=== PATIENT | male | born 1955 | race Caucasian/White ===

== ENCOUNTER 2018-10-10 13:53 | Outpatient (CLI) | payer MEDICARE, OTHER ==
[2018-10-10 14:24] LABS: MEAN CORPUSCULAR HEMOGLOBIN 30.9 pg (28.0-34.0)
[2018-10-10 14:25] LABS: BASOPHILS % 6.5 % (0.0-1.5); EOSINOPHILS % 1.4 % (0.0-6.8); NEUTROPHILS # 4.1 # k/uL (1.4-7.7)
[2018-10-10 14:41] LABS: APPEARANCE,URINE CLEAR (CLEAR); COLOR,URINE YELLOW (YELLOW); OCCULT BLOOD,URINE NEGATIVE (NEGATIVE); PH URINE 6.5 (5.0 - 8.0); UROBILINOGEN URINE 0.2 Eu (0.2-1.0)
[2018-10-10 14:44] LABS: eGFR (Non-African) > 60
== END 2018-10-10 13:55 ==
LOC: LAB 13:53
PROVIDERS: ATTEND Internal Medicine
DX: Z00.00 Encounter for general adult medical examination without abnormal findings (principal); Z12.5 Encounter for screening for malignant neoplasm of prostate; E78.5 Hyperlipidemia, unspecified
CPT/HCPCS: 36415; 80053; 80061; 81002; 84153; 84439; 84443; 85025

== ENCOUNTER 2019-02-22 10:16 | Outpatient (CLI) | payer MEDICARE, OTHER ==
--- NOTE | 2019-02-22 13:30 | Diagnostic Imaging Report ---
JAY COHN [facility] [address] [facility].[address] [id number] Report Submission Date: Feb 22, 2019 1:20:46 PM CDT Patient Study Name: PAULA MEDINA Date: Feb 22, 2019 11:20:06 AM CDT Modality Type: DX Gender: M Description: FOOT 3 VIEWS OR MORE : 51 Institution: [facility] Physician: JAY COHN Exam: Right foot. History: Wound. AP, lateral and oblique view of the right foot are submitted. No previous studies are available for comparison. Well corticated deformity to the 5th proximal phalanx may indicate old injury. No signs of acute fracture or dislocation is seen. No bony erosions are seen. Spur off the plantar surface of the calcaneus is noted. Impression: Old injury to the 5th proximal phalanx. No acute fracture or bony erosion. Heel spur. Electronically signed on Feb 22, 2019 1:20:46 PM CDT by: Saravanan ONEAL
--- NOTE | 2019-02-28 08:07 | CONSULTATION REPORT ---
DATE OF CONSULTATION: 02/22/2019 SUBJECTIVE: J Carlos Rico is a 63-year-old nondiabetic male presenting to clinic today for a first time visit with me for a right great toe ulcer. The patient states that he believes it started back in the spring of this year, where it had a callus and eventually began to blister and opened up into a wound. The patient states that he does not recall any history of any infection noted, but does get some bleeding and drainage occasionally. He has been dressing it with Polysporin or another form of antibiotic ointment and a Band- Aid for most of that time. His primary care physician is Dr. Guillaume and he has an appointment coming up soon to see Dr. Guillaume. He was encouraged to discuss with Dr. Guillaume regarding the numbness that he is starting to feel in the right and left feet. The patient does not know why he is having it and denies any lower back pain issues at all. The patient does not have any other issues in the feet that are bothering him except for just this wound. The patient is ready to begin effective treatment with me going forward. The patient does not admit to any fever, chills, nausea, vomiting, shortness of breath or chest pain. OBJECTIVE: Vitals: Temperature 98.2, heart rate 97, respiration rate 18, blood pressure 149/91. O2 sat 97% on room air. Vascular: 2+ DP and PT pulses, bilaterally. Capillary refill time less than 3 seconds to the toes bilaterally. There is a large amount of hair growth noted on the right foot to the toes. There is no edema noted right foot. Dermatologic: The right great toe plantar medial IPJ has a notable open wound with some hyperkeratotic tissue noted. The wound base has some fagan and necrotic slough that was debrided today. The wound does not probe to bone, but is not too far from it. The wound does undermine in most directions approximately 0.3 cm. This is debrided to open up the undermining area today. There is moderate bleeding with debridement which was a good sign of good bleeding. The wound base otherwise is fibrogranular at this time. There is no purulence noted. There is some positive malodor as well as some erythema noted on the dorsal proximal end of the wound especially where there is some significant erythema. 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 Musculoskeletal: There is no pain on palpation noted and mild to no pain at debridement noted. The patient has 45 degrees range of motion at the first metatarsophalangeal joint dorsiflexion with the forefoot not loaded, and only approximately 10 degrees of range of motion of the first metatarsophalangeal joint with the forefoot loaded on the right. Neurologic: Light touch sensation is diminished at the toes right foot. Negative Tinel's sign at the tarsal tunnel or dorsal proximal foot and also a negative Tinel's sign at the common peroneal nerve right lower leg. ASSESSMENT AND PLAN: 1. Right hallux ulcer at the interphalangeal joint. 2. Hallux limitus of the right first metatarsophalangeal joint. 3. Peripheral neuropathy. The patient denies any known drug allergies. A prescription for Augmentin 875/125 mg #20 one by mouth b.i.d. x 10 days was given to the patient to take to [facility]. He admits to being only on one medication which is a cholesterol medication. Three views x-rays of the right foot were also ordered today to make sure that there are no signs of infection in the bone as the patient has had this for quite some time and has evidence of infection today. We will notify the patient on Tuesday of results. If any sign of infection in the bone, we will seek out more definitive imaging studies with an MRI. If there are no signs of infection, we will continue normal local wound care. The patient knows I will not be here next week and therefore we will see him in two weeks for followup. PROCEDURE #1: Sharp debridement of the right great toe IPJ ulcer down to and including the subcutaneous tissue layer less than 20 sq cm with a #15 blade was performed. Hemostasis was obtained with pressure. It should be noted there was moderate bleeding noted, which is a good sign. This was controlled with pressure and rinsed with a copious amount of normal saline. Dressings were then applied consisting of triple antibiotic ointment and a Band-Aid today. The patient did not have any large dressings applied as he was going to get x-rays at this time and he will do his normal gauze and Band-Aid dressing at home today or tomorrow and daily going forward as encouraged. The patient had a surgical shoe dispensed today with a large pad that offloads the IPJ area. The patient understands he needs to weight bear in this at all times except when in bed. The patient states he can do that and plans to do so. This will help keep pressure off the wound. We are addressing infection and pressure with this treatment and his bleeding seems to be great and therefore he should begin to progress with healing. If we have any stalling of healing we will need to look at some other options or changing offloading in a surgical shoe with perhaps a reverse Fagan's extension. It should be noted that a quarter-inch felt padding was placed in that surgical shoe with offloading at the great toe. The patient had no further questions and we will plan on seeing him again in two weeks. He is to do daily dressing changes to every other day dressing changes and to be taking the Augmentin for the next 10 days. We will follow up in two weeks and if has any questions he knows I will be out of town and needs to follow up with the primary care doctor. He was encouraged to speak with Dr. Guillaume about the numbness as I do not believe that is stemming from anything in the lower legs. Return to clinic in two weeks. Pieter Kaye D.P.M.(Dictated/not signed) /Accutype [id number] /mab MTDD
== END 2019-02-22 10:45 ==
LOC: POD 10:16
PROVIDERS: ATTEND Podiatrist Foot & Ankle Surgery
DX: L97.519 Non-pressure chronic ulcer of other part of right foot with unspecified severity (principal); M20.5X1 Other deformities of toe(s) (acquired), right foot; G62.9 Polyneuropathy, unspecified
CPT/HCPCS: 11042; 73630; 99212; G0463; A4554

== ENCOUNTER 2019-03-08 10:29 | Outpatient (CLI) | payer MEDICARE, OTHER ==
--- NOTE | 2019-03-12 14:20 | OP Clinic Progress Note ---
DATE OF VISIT: 03/08/2019 SUBJECTIVE: J Carlos Rico is a 63-year-old male presenting to clinic today for followup of a right great toe IPJ ulcer that started recently. The patient had x-rays done, which were negative for any signs of infection in the bone. The patient also upon review of the x-rays again today did not show any concern for decreased cartilage on the first metatarsophalangeal joint. The patient states that he took the Augmentin as prescribed and has finished it, but is concerned that it still looks and feels a little bit like it might be infected. The patient denies any medications except for a very small cholesterol pill that he takes. The patient denies any known drug allergies as well. The patient does not admit to any fevers, chills, nausea, vomiting, shortness of breath or chest pain. He is wearing a surgical shoe as directed at all times and states that he is worried that the padding has flattened some and wonders if he needs additional padding to help keep pressure off. OBJECTIVE: Vitals: Heart rate 88, respiration rate 16, blood pressure 145/90. O2 saturation is 96% on room air. Vascular: Non-palpable DP pulse today, and 2+ PT pulse, right foot. There is plenty of hair growth to the forefoot and toes, right foot. There is immediate capillary refill time to the great toe, right foot. Dermatologic: The right great toe has an open lesion under the IPJ that is measuring today at 1.0 x 0.4 x 0.4 cm deep. Last week, it measured 1.3 x 0.8 x 0.3 cm deep. This has definitely improved from last week. There is, however, consistent erythema and warmth noted around the edges of the wound. There is no purulence or malodor noted. There is very minimal bleeding with sharp debridement today. There is mild hyperkeratotic tissue around the edge of the wound that was also debrided today to intact skin around the wound. There are no other abnormalities or skin concerns noted on the right foot. Musculoskeletal: There is approximately 45 to 50 degrees of range of motion dorsiflexion of the right first metatarsophalangeal joint with the forefoot not loaded and this decreases to approximately 5 degrees of range of motion with the forefoot loaded. Upon further exam, we find that the first tarsometatarsal joint also has a hypermobility associated with it even with the forefoot not loaded. There are no other gross abnormalities noted, right foot. Neurologic: Light touch sensation seems to be absent at the toes, right foot. The patient does not feel any pain with debridement of the wound. ASSESSMENT AND PLAN: 1. Right hallux ulcer, IPJ. 2. Right hallux limitus. 3. Right first ray primus elevatus. 4. Peripheral neuropathy of unknown etiology, right foot. 5. Consistent cellulitis of the right great toe even after antibiotics. Upon visual exam of the x-rays from last visit, there is definite normal cartilage appearing in the first metatarsophalangeal joint. I do not believe that the issue is in that joint, however, I do believe the issue is stemming from a hypermobile first tarsometatarsal joint. As the first ray is hypermobile, I believe this elevates in the head of the first metatarsal and causes the great toe to jam against it disallowing any motion of the first metatarsophalangeal joint when the forefoot is loaded and therefore when he is walking. The patient and I discussed this today. The patient has continued cellulitis and warmth and therefore we are starting him on Bactrim DS one by mouth every 12 hours times 10 days. I wanted to add some MRSA coverage to make sure that we are taking care of any concern here. There is no good drainage to culture, however, so therefore we did not culture the wound. The patient understands that we are doing antibiotics for 10 more days and hopefully we will have some resolution of any cellulitis at that point. An adjustment was made to his surgical shoe off-loading the IPJ even better and allowing a first metatarsal head cutout to let the first metatarsal come down to improve range of motion as well. The patient understood this reasoning as well and he will continue to wear the surgical shoe at all times. PROCEDURE #1: Sharp debridement of the right great toe IPJ ulcer with a #15 blade was performed down to and including the subcutaneous tissue layer today. Bleeding was controlled with pressure, which was very mild. Hyperkeratotic tissue on the edges was also removed. The dressings were then applied consisting of Triple Antibiotic Ointment and a large Band-Aid. The patient will continue to do the same dressing change and keep it clean daily. The patient denies being diabetic and we are unsure as to why he has the peripheral neuropathy in the distal foot at this time. This is something next week that I will encourage the patient to speak with his primary care doctor about so that we know why he is getting this numbness. I would also love to do a more thorough exam with a 5.07 Culver-Sergio monofilament test in the future if I can bring one to this clinic. Return to clinic in one week for continued followup and wound care. I told the patient that I do not believe we will need to do surgery as long as we can get him in an appropriate insert that has a first metatarsal head cutout allowing improved range of motion. We will resort to surgery if we cannot keep this wound healing and then closed. Brit Emerson.P.M.(Dictated/not signed) /Accutype [id number].[id number] /mab MTDD
== END 2019-03-08 11:00 ==
LOC: POD 10:29
PROVIDERS: ATTEND Podiatrist Foot & Ankle Surgery
DX: L97.519 Non-pressure chronic ulcer of other part of right foot with unspecified severity (principal); M20.5X1 Other deformities of toe(s) (acquired), right foot; M20.11 Hallux valgus (acquired), right foot; G90.09 Other idiopathic peripheral autonomic neuropathy; L03.115 Cellulitis of right lower limb
CPT/HCPCS: 11042; 99212; G0463; A4554

== ENCOUNTER 2019-03-15 10:26 | Outpatient (CLI) | payer MEDICARE, OTHER ==
--- NOTE | 2019-03-19 16:47 | OP Clinic Progress Note ---
DATE OF VISIT: 03/15/2019 SUBJECTIVE: J Carlos is a 63-year-old male presenting to clinic today for followup of the right hallux IPJ ulcer. He has been using a surgical shoe with appropriate padding and offloading that I gave him last time. He also was switched to Bactrim DS, which he has a couple of days left of and states that he is feeling better. The patient does not have any other concerns or problems in the feet and does not admit to any fever, chills, nausea, vomiting, shortness of breath or chest pain. OBJECTIVE: Vitals: Temperature 98.1, heart rate 86, respiration rate 18, blood pressure 143/85, O2 sat is 98% on room air. Vascular: Nonpalpable DP pulse, 2+ PT pulse right foot. There is lots of hair growth to the forefoot and toes, right foot. There is immediate capillary refill time to the right great toe. Dermatologic: The right great toe has improved greatly in appearance at this time. There is no erythema or warmth or signs of infection. The lesion itself appears smaller with very mild hyperkeratotic tissue around the edges. It was debrided today to a good bleeding base. This wound is measuring today at 0.8 x 0.3 x 0.3 cm deep. This is improved from last week where it measured 1.0 x 0.4 x 0.4 cm deep. There are no other skin lesions or concerns noted. Musculoskeletal: There is very mild pain on palpation noted today of the right great toe. There is approximately 45 to 50 degrees range of motion in dorsiflexion of the right first metatarsophalangeal joint with the forefoot not loaded with decrease to approximately 5 degrees of range of motion with the forefoot loaded per previous exam. The first ray also has hypermobility at the first tarsometatarsal joint which is likely the etiology here. Neurologic: Light touch sensation is diminished at the toes right foot. The patient has very mild to no pain at debridement of the wound. ASSESSMENT AND PLAN: 1. Right hallux ulcer IPJ. 2. Right hallux limitus. 3. Right first ray primus elevatus. 4. Peripheral neuropathy of unknown etiology. 5. Cellulitis - resolved. PROCEDURE #1: Sharp debridement of the right first toe IPJ ulcer was performed today down to and including the subcutaneous tissue layer with a #15 blade, less than 20 sq cm. Bleeding was controlled with pressure. This site was rinsed with a copious amount of normal saline, dried and dressings were applied consisting of triple antibiotic ointment and a Band-Aid. The patient is to continue daily dressing changes and keeping it clean, washing it at the end of a shower every day. The patient understands this and will continue treatment as prescribed. The patient had a small adjustment with additional padding put in his surgical shoe to keep it doing well with offloading the IPJ of the right great toe. We discussed also that we are likely going to need to get him into an appropriate custom insert in order to allow appropriate range of motion of the first metatarsophalangeal joint with a reverse Fagan's extension into the insert somehow. We will discuss this at our further upcoming exams as we would consider doing that once this has healed. The patient had no further questions and we will hopefully go forward with getting him in to see someone at [facility] or go to physical therapy department downstairs at the [facility] to see what we can do get him a pair of inserts. The patient will return to clinic in one week for followup and local wound care. Tia EmersonPNatanaelM. (Dictated/not signed) /Accutype [id number].[email or web address] /mab MTDD
== END 2019-03-15 11:00 ==
LOC: POD 10:26
PROVIDERS: ATTEND Podiatrist Foot & Ankle Surgery
DX: L97.519 Non-pressure chronic ulcer of other part of right foot with unspecified severity (principal); M20.5X1 Other deformities of toe(s) (acquired), right foot; G62.9 Polyneuropathy, unspecified
CPT/HCPCS: 11042; 99212; G0463; A4554

== ENCOUNTER 2019-03-22 10:19 | Outpatient (CLI) | payer MEDICARE, OTHER ==
--- NOTE | 2019-04-04 10:59 | OP Clinic Progress Note ---
DATE OF VISIT: 03/22/2019 SUBJECTIVE: J Carlos is presenting today for followup of an ulcer to the right great toe that is healing. The patient is doing antibiotic ointment and a Band- Aid daily and is using a surgical shoe with a reverse Fagan's and off-loading padding. The patient states that he is doing well. His primary care doctor is Dr. Guillaume. He is willing to talk to Dr. Guillaume about working him for a why he is getting the numbness in the feet. He is not aware of being diabetic and would like to look into that to be safe. OBJECTIVE: Vitals: Temperature 96.2 degrees Fahrenheit, heart rate 93, respiration rate 18, blood pressure 134/85. O2 saturation is 97% on room air. Vascular: 2+ DP and PT pulses, right foot. Capillary refill time is less than 3 seconds to the toes of the right foot. There is no edema noted, right foot. Dermatologic: There is hyperkeratotic tissue around the edge of the ulcer as well as a mild amount of yellow slough noted on the inside and edge of the small wound today. This is all debrided to a good bleeding granular base. This wound is measuring 0.7 x 0.2 x 0.3 cm deep today. There is no erythema or purulence or malodor or warmth noted. This is healing well. Musculoskeletal: There is no pain on palpation nor with debridement today. There is limited range of motion of the first metatarsophalangeal joint where the forefoot loaded versus improved range of motion of the forefoot not loaded at the first MPJ based on previous exam. Neurologic: Light touch sensation is diminished to the toes, right foot. ASSESSMENT AND PLAN: 1. Pressure ulcer, right hallux, stage 3 - healing. 2. Peripheral neuropathy, right foot. PROCEDURE #1: Sharp debridement with a #15 blade down to and including the subcutaneous tissue layer less than 20 sq cm was performed today. This was performed at the right great toe ulcer. The patient tolerated the procedure well. Bleeding was controlled with pressure. The site was dressed with a triple antibiotic ointment and a Band-Aid today. The patient is to continue doing that daily. We again encouraged the patient to follow up and have the numbness worked up by Dr. Guillaume. We also discussed the idea of getting him sent for custom orthotics with a reverse Fagan's extension at least on the right foot if not both feet at this time, so it is ready once this has healed. The patient would like to probably plan on this, but would like to wait at least another week or two before deciding. We will likely order one that goes to the sulcus and has the reverse Fagan's extension built in to off-load that area. I believe this will work well as it is doing so with surgical shoe at this time. The patient has no further questions or concerns and would like to probably plan on this instead of surgery or non-custom inserts. He would rather do customs as he plans to use them for a long time. Return to clinic in one week for continued local wound care. Brit Emerson.P.M. (Dictated/not signed) /Accutype [id number] /mab MTDD
== END 2019-03-22 10:45 ==
LOC: POD 10:19
PROVIDERS: ATTEND Podiatrist Foot & Ankle Surgery
DX: L89.893 Pressure ulcer of other site, stage 3 (principal); G62.9 Polyneuropathy, unspecified
CPT/HCPCS: 11042; 99212; G0463; A4554

== ENCOUNTER 2019-04-05 10:22 | Outpatient (CLI) | payer MEDICARE, OTHER ==
--- NOTE | 2019-04-13 12:38 | OP Clinic Progress Note ---
DATE OF VISIT: 04/05/2019 SUBJECTIVE: J Carlos presents today for followup of a pressure ulcer on the right great toe IPJ. The patient has been doing well but was unable to visit last week and presents today, an hour late, but he thought his appointment was at 10:15 and we had him down for 09:15. The patient was little concerned and apologetic but we reassured him that he is just fine and that we are happy to get him in today. The patient states that he is doing well and he has been thinking about the custom orthotics and would like to go forward with having that done. We will go ahead and get that sent in to [facility]. He does not admit to any other fevers, chills, nausea, vomiting, shortness of breath or chest pain, nor any other problems in the foot. OBJECTIVE: Vitals: Temperature 97.9 degrees Fahrenheit, heart rate 89, respiration rate 18, blood pressure 151/100. O2 saturation is 100% on room air. We discussed the blood pressure and he will keep an eye on it at home as this is the first time we have had it elevated and we will check it again in two weeks and if it is still elevated we will refer him to his primary care doctor. The patient was likely elevated today due to the stress of finding out that we thought he was an hour late. Vascular: Palpable DP and PT pulses, right foot. Capillary refill time is less than 3 seconds to the toes of the right foot. There is no edema noted, right foot. Dermatologic: There is a small open lesion on the plantar medial IPJ of the right great toe. This is surrounded with the small amount of hyperkeratotic tissue which was debrided today without incident. The wound base has some fibrotic tissue which was debrided today as well. The toe does not have any warmth, purulence, malodor or erythema noted. The patient's wound measurements today are 0.4 x 0.2 x 0.2 cm deep. This is improved from last week where they measured 0.7 x 0.2 x 0.3 cm deep. Musculoskeletal: There is no pain on palpation nor with debridement. The patient has numbness in the foot which he states he will speak with Dr. Guillaume in his upcoming appointment. The patient has 45 degrees dorsiflexion range of motion of the right first metatarsophalangeal joint with the foot not loaded versus almost zero range of motion with the left forefoot loaded. Upon further exam, however, the right first tarsometatarsal joint is also quite hypermobile with the foot unloaded and with the forefoot loaded. I believe that this hypermobility is what is causing him to jam at the first metatarsophalangeal joint. Neurologic: Light touch sensation is absent to the toes, right foot. ASSESSMENT AND PLAN: 1. Right foot pressure ulcer at the hallux, IPJ, stage II. 2. Hallux limitus, right foot. 3. Hypermobile first tarsometatarsal joint left foot. PROCEDURE #1: Sharp debridement of the right hallux IPJ pressure ulcer with a #15 blade less than 20 sq cm down to and including subcutaneous tissue was performed. Dressings were applied consisting of triple antibiotic ointment and a Band-Aid today. The patient will continue doing dressing changes daily and would like to push out this appointment to two weeks if possible. Since he had some improvement today, we can definitely consider doing that. The patient will return to clinic in two weeks and if he continues to improve we will continue every two-week visits and if he is stalling then we will resume weekly visits. We will see the patient back in two weeks for continued wound care. We will also check his blood pressure again and if that is still high we will encourage referring him to Dr. Guillaume to speak about blood pressure as well. Tia EmersonP.M. (Dictated/not signed) /Accutype [id number] /mab MTDD
== END 2019-04-05 10:55 ==
LOC: POD 10:22
PROVIDERS: ATTEND Podiatrist Foot & Ankle Surgery
DX: L89.892 Pressure ulcer of other site, stage 2 (principal); M20.5X1 Other deformities of toe(s) (acquired), right foot; M21.6X2 Other acquired deformities of left foot
CPT/HCPCS: 11042; 99213; G0463; A4554

== ENCOUNTER 2019-04-19 10:18 | Outpatient (CLI) | payer MEDICARE, OTHER ==
--- NOTE | 2019-04-24 11:35 | OP Clinic Progress Note ---
DATE OF VISIT: 04/19/2019 SUBJECTIVE: J Carlos Rico is a 63-year-old male presenting to clinic today for right foot pressure ulcer, stage III under the right great toe IPJ. The patient has been in a surgical shoe, but switched to a regular boot where he is having a lot more pressure the last couple of days due to the cold weather. The patient states that otherwise he has been using the surgical shoe where we had offloaded that area. The patient denies being diabetic as far as he knows and sees Dr. Guillaume in one of two weeks from now and will bring that up there to make sure that he is not with any sort of labs that they want to get done. The patient does not admit to any other pain or problems in the right foot. He does not admit to any fevers, chills, nausea, vomiting, shortness of breath or chest pain. OBJECTIVE: Vitals: Temperature 98.5, heart rate 88, respiration rate 15, blood pressure 137/85, O2 sat is 99% on room air. Vascular: DP and PT pulses were hardly palpable if at all on the right foot today. He does have his capillary refill time that is less than 3 seconds to the toes, right foot almost immediate. There is also hair growth noted to the toes and feet significantly on the right foot. There is no edema noted at the right great toe area. Dermatologic: There is still an open lesion noted on the plantar medial IPJ of the right great toe with some mild hyperkeratotic tissue which was debrided today. There is some undermining of the wound underneath the skin edges so the skin edges were debrided to crater the wound a little bit better today. There was good bleeding on debridement today. The wound base had some fibrotic tissue which was debrided today to a good bleeding granular base. The wound today is measuring at 0.5 x 0.4 x 0.4 cm deep. This is worse from last week where it measured 0.4 x 0.2 x 0.2 cm deep. There was no erythema or signs of infection or malodor or abnormal drainage. Musculoskeletal: There is mild pain with debridement today. There is about 45 degrees of dorsiflexion of the right first metatarsophalangeal joint with the forefoot not loaded versus almost 0 range of motion with forefoot loaded on the right. Last week I mistakenly mentioned left forefoot, but I meant the right. The first tarsometatarsal joint is also quite hypermobile on the right foot with the foot loaded and unloaded in the forefoot. Neurologic: Light touch sensation is absent to the toes of the right foot. ASSESSMENT AND PLAN: 1. Right foot pressure ulcer of the IPJ of the hallux stage III at this time. 2. Hallux limitus right foot. 3. Hypermobile right first tarsometatarsal joint. PROCEDURE #1: Sharp debridement of the right great toe ulcer, less than 20 sq cm down to and including the subcutaneous tissue layer with a #15 blade was performed today without incident. The patient tolerated this well. It was rinsed with a copious amount of normal saline, dried and triple antibiotic ointment and a Band-Aid was applied. The patient was encouraged to get back into a surgical shoe immediately as this will offload this area much better. I am concerned that it may be worsening due to getting into a regular boot for the last couple of days. The patient states that he will do this. The patient and I discussed the possibility of maybe needing to do an aggressive cheilectomy to improve the range of motion of this joint. He does not have any pain in the joint itself so I do not believe a joint replacement would be warranted, but an aggressive cheilectomy would do a lot to improve the range of motion of this joint even with the first tarsometatarsal joint hypermobility. As the patient's blood flow is difficult to palpate, I would definitely consider doing arterial Dopplers at our next visit as well as sending a note with the patient and a clearance form to go with him when he sees Dr. Guillaume for their next appointment. I believe that we will consider the possibility of an aggressive cheilectomy under a MAC anesthesia with local as well if this does not continue to improve and we will likely go ahead and send a clearance form and get arterial Dopplers happening at our next visit so that we can have that just in case we decide to do surgery. The patient understands the need for this as this is starting to digress unless we can get some improvement with the surgical shoe again. The patient will return to clinic in one week where we will adjust the surgical shoe as needed to try and keep the pressure down from that area of the great toe and we will then see him in two weeks after that or a week after that to see if we are getting improvement. Either way we will get arterial Dopplers next time and send him with a clearance form and labs suggestions and imaging as needed to prepare for possible surgery. The patient has no other questions and we will see him next week for followup. Pieter Kaye D.P.M. /[place] [id number] /mab MTDD
== END 2019-04-19 10:40 ==
LOC: POD 10:18
PROVIDERS: ATTEND Podiatrist Foot & Ankle Surgery
DX: L89.893 Pressure ulcer of other site, stage 3 (principal); M20.5X1 Other deformities of toe(s) (acquired), right foot; M35.7 Hypermobility syndrome
CPT/HCPCS: 11042; 99213; G0463; A4554

== ENCOUNTER 2019-05-03 10:49 | Outpatient (CLI) | payer MEDICARE, OTHER ==
--- NOTE | 2019-05-11 11:15 | OP Clinic Progress Note ---
DATE OF VISIT: 05/03/2019 SUBJECTIVE: J Carlos is a 63-year-old male presenting to the clinic today for followup of the right great toe IPJ pressure ulcer stage III. The patient was unable to come last week due to issues at work and has been in a surgical shoe as instructed from our visit two weeks ago. He was in a boot for a little bit and it got worse and he was put back in the surgical shoe and he has definitely improved since our last visit. He is using antibiotic ointment and a Band-Aid daily. He states that since our last visit where we had to trim out more of the wound to allow healing from the base up he had more bleeding and therefore had to use more dressings in the beginning since our last visit. He does not admit to any fevers, chills, nausea, vomiting, shortness of breath or chest pain. He states that he would like to wait on any custom orthotics until we make sure that this wound is healing appropriately and make sure that we do not end up doing surgery instead. OBJECTIVE: Vitals: Temperature 97.4 degrees Fahrenheit, heart rate 85, respiration rate 16, blood pressure 152/82. O2 saturation is 96% on room air. Vascular: Faintly palpable DP and PT pulses, right foot. Capillary refill time is less than 3 seconds to the toes of the right foot. There is hair growth noted to the toes and feet on the right. There is no edema noted in the right great toe. Dermatologic: There is an open lesion still noted on the plantar medial aspect of the first toe IPJ. There is mild hyperkeratotic tissue around the edges which was debrided as well today. The wound appears to be trying to close but still has a significant amount of depth to it. It is getting smaller, however. The wound was measured but I am not seeing the measurement currently. It definitely was improved from our last visit and appeared to be closer to approximately 0.3 x 0.2 x 0.4 cm deep. The edges of the wound were beveled to try and encourage healing from the inside out so that this does not heal from the outside in. There is no erythema or signs of infection noted. There is no cellulitis or purulence. There are no other skin abnormalities noted in the right foot. Musculoskeletal: There was mild pain with debridement today. There is about 45 degrees of dorsiflexion of the right first metatarsophalangeal joint of the forefoot not loaded versus almost 0 degrees range of motion of the forefoot loaded on the right. There is notable first tarsometatarsal joint hypermobility as well including with the forefoot loaded or unloaded. This is per previous exam. Neurologic: Light touch sensation is absent to the toes, right foot. ASSESSMENT AND PLAN: 1. Right foot pressure ulcer of the IPJ of the hallux, stage III. 2. Right hallux limitus. 3. Hypermobile right first tarsometatarsal joint. PROCEDURE #1: Sharp debridement of the right hallux ulcer down to and including the subcutaneous tissue layer with a #15 blade less than 20 sq cm was performed today. It was rinsed with normal saline, dried and hemostasis was obtained with pressure. Dressings were applied consisting of Triple Antibiotic ointment, 4x4 gauze, 2-inch Jorge and 1-inch Coban today. This is to help with if there is any extra bleeding with debridement today. The patient knows that he can take this off tomorrow and begin doing normal antibiotic ointment and a Band-Aid daily. We will continue local wound care and see if this heals from the inside out. We have done x-rays previously and if this for some reason struggles to heal then we will consider an MRI to make sure there are no signs of infection to the bone versus possibly work on a graft that we can place deeper in the wound from [employer] perhaps. We will also consider custom orthotics but we will wait until at least next visit to make sure that this is continuing to heal properly before ordering them. Once this wound is healed, we will plan on keeping him in the surgical shoe until we are able to get the orthotics made. His surgical shoe padding was adjusted to make sure that he has good padding appropriate to offload the IPJ still. The patient will return to the clinic in one and half weeks on a Tuesday before for local wound care and then we will see him approximately two and half weeks later as needed. Pieter Kaye D.P.M. /[employer] [id number] R: 05/09/19 /mab MTDD
== END 2019-05-03 11:20 ==
LOC: POD 10:49
PROVIDERS: ATTEND Podiatrist Foot & Ankle Surgery
DX: L89.893 Pressure ulcer of other site, stage 3 (principal); M20.5X1 Other deformities of toe(s) (acquired), right foot; M35.7 Hypermobility syndrome
CPT/HCPCS: 11042; 99213; G0463; A4554

== ENCOUNTER 2019-06-07 10:27 | Outpatient (CLI) | payer MEDICARE, OTHER ==
--- NOTE | 2019-06-11 15:58 | OP Clinic Progress Note ---
DATE OF VISIT: 06/07/2019 SUBJECTIVE: J Carlos Rico is a 63-year-old male presenting to the clinic today for follow up of the right great toe IPJ pressure ulcer stage 3. We have been working on this for a few months now at least and the patient seems to not be improving very much. Despite appropriate wound care the patient states that it continues to drain and even after putting a bandage on this morning it still has a significant amount of drainage on the dressing and the skin is becoming more white from drainage. The patient has been in a surgical shoe with appropriate offloading and has very mild if any callus that is forming on the toe at this time, which is a good sign of good offloading. The patient does not admit to any other issues, but would like to see what we can do to continue going forward to get this better. He does not admit to any fevers, chills, nausea, vomiting, shortness of breath or chest pain. OBJECTIVE: Vitals: Temperature 97.5 degrees Fahrenheit, heart rate 68, respiration rate 16, blood pressure 137/86. O2 saturation is 94% on room air. Vascular: Palpable DP and PT pulses, right foot. These are about 1+ in strength. Capillary refill time is less than 3 seconds to the toes and virtually immediate at the great toe right foot. There is significant hair growth in the feet and on the toes right foot. There is significant difference in size of the right great toe versus the left great toe with some edema, but not much. Dermatologic: There is an open lesion still noted on the plantar medial aspect of the right first toe IPJ. There is some white macerated tissue, which was debrided back to reveal what seems to be an even larger wound than previous. It is measuring today at 0.6 x 0.3 x 0.3 cm deep. Last time it was approximately 0.3 x 0.2 x 0.4 cm deep. There is no erythema or warmth or malodor or purulence noted. There is no probe to bone, but it does go quite deep close to bone. Musculoskeletal: There is no pain with debridement on the right great toe. The patient has from previous exam about 45 degrees of dorsiflexion of the right first metatarsophalangeal joint with the forefoot unloaded versus almost 0 degrees range of motion with the forefoot is loaded on the right. The patient also has notable first tarsometatarsal joint hypermobility from previous exam whether the foot is loaded or unloaded at the forefoot. There is some crepitus with IPJ range of motion right great toe. Neurologic: Light touch sensation is absent to the toes, right foot. ASSESSMENT AND PLAN: 1. Right foot pressure of the IPJ of the hallux stage 3. 2. Right hallux limitus. 3. Hypermobile right first tarsometatarsal joint. PROCEDURE #1: Sharp debridement with a #15 blade less than or equal to 20 sq cm down to and including the subcutaneous tissue layer of the right great toe was performed today. The site was rinsed with normal saline and dressed with triple antibiotic ointment, 4x4 gauze and tape. We had a significant discussion with the patient today regarding the fact that this seems to not be improving and seems to be worsening right now. We discussed that we for sure need to move forward with checking for any signs of infection in this toe. He has never had any known infection in the toe, but it is possible I guess that he could still have developed an osteomyelitis somehow. He may have developed this through bacteria that still got into the bone directly or perhaps via other methods through the blood stream. The patient understands that the plan is to order an MRI at this time and we will get that done as soon as possible to check for infection in the bone. We discussed that if there is infection in the bone we will either need to recommend him to see an infectious disease specialist for IV antibiotics for likely six weeks with no guarantee, but a good chance that we could be able to get the infection out of there and then let this heal versus possible toe amputation that would likely be the most definitive treatment. The patient understands that with IV antibiotics he has some risk of kidney damage, which I encouraged him to talk to an infectious disease doctor about to find out how strong that possibility is if the MRI comes back positive for infection. As the right great toe is significantly larger than the left great toe I am concerned that there may be some signs of infection in there. We will have the patient get the MRI and then return to clinic in two weeks from now to go over the MRI and a possible plan going forward. If the MRI is negative for any infection then my next plan would be to see if we can get him approved for [employer] from [employer] for biologic grafts to try and get it to heal appropriately. The patient understands that this is the plan and we will go forward from here. He is to continue normal dressing changes as he has been doing every day and keep it dry. ADDENDUM: With regard to the MRI, we will be ordering an MRI with and without contrast of the right forefoot. The patient was questioned and states that he does not have any known kidney damage or problems. He also denies having any metal in his body and denies any issues with claustrophobia and also denies any shellfish or iodine issues. Pieter Kaye D.P.M./[employer] [id number] & [id number]/mab MTDD
== END 2019-06-07 11:07 ==
LOC: POD 10:27
PROVIDERS: ATTEND Podiatrist Foot & Ankle Surgery
DX: L89.893 Pressure ulcer of other site, stage 3 (principal); M20.5X1 Other deformities of toe(s) (acquired), right foot; M35.7 Hypermobility syndrome
CPT/HCPCS: 11042; 99213; G0463; A4554